=== PATIENT | male | born 1965 | race Caucasian/White ===

== ENCOUNTER 2023-12-09 13:31 | Emergency (ER) | payer OTHER, BC, SELFPAY ==
[2023-12-09] VITALS (12 sets, daily range): BP systolic 114–126; BP diastolic 72–82; PULSE 60–101; RESP 18; TEMP 36; O2SAT 94–97; BMI 28.6
--- NOTE | 2023-12-09 14:11 | ED.GENADULT ---
HPI - General Adult General Chief complaint: Weakness Stated complaint: Covid three weeks ago, weak/congested since Time Seen by Provider: 12/09/23 13:40 Source: patient Mode of arrival: ambulatory Limitations: no limitations History of Present Illness HPI narrative: 58-year-old male presenting today with fatigue. States that he was diagnosed with COVID-19 about 3 and half weeks ago. He states that he continues to be very tired, no energy. Appetite has been normal. No vomiting. No diarrhea or urinary symptoms. He denies chest or abdominal pain. He is not short of breath. He does have a cough that has continued and perhaps has gotten worse over the last several days. He has an itchy rash behind his legs that is been there for approximately 3 weeks but is now getting better. Past medical history significant for BPH, history of bronchospasm, hidradenitis suppurativa, hyperlipidemia. Patient does smoke tobacco. Uses methamphetamines periodically. Is not immunized for COVID-19. Related Data Home Medications Medication Instructions Recorded Confirmed No Known Home Medications 01/03/23 12/09/23 Allergies Allergy/AdvReac Type Severity Reaction Status Date / Time Penicillins Allergy Unknown Verified 12/09/23 13:43 Review of Systems Status of ROS: Reports: 10 or more systems reviewed and unremarkable except as noted in History and below [facility] Medical History Smoker ?F17.200 - Nicotine dependence, unspecified, uncomplicated (ICD-10) URI (upper respiratory infection) ?J06.9 - Acute upper respiratory infection, unspecified (ICD-10) Social History Smoking Status: Current every day smoker What tobacco products do you use: cigarettes How often do you have a drink containing alcohol: never How often do you have six or more drinks on one occasion: Never AUDIT-C Alcohol total score: 0 Non-prescribed substance use: former substance user and amphetamines/methamphetamines Exam Narrative: Exam Narrative: Overweight, well-developed patient in no acute distress. Alert and oriented. Answers questions appropriately. Mood and affect are appropriate. Thoughts are goal oriented and rational. No tangential or magical thinking noted. Patient speaks in full sentences without needing to catch his breath. Speech is not slurred or pressure. Patient does not appear ill or toxic. HEENT: Normocephalic atraumatic. Pupils are equally round reactive to light. Extraocular muscles are intact. Conjunctivae are moist without any icterus noted. Moist mucous membranes. Posterior pharynx is normal. Neck is soft without any lymphadenopathy or thyromegaly. No masses are appreciated. Cardiovascular: Heart is regular rate and rhythm S1 and S2 are present without any murmurs. Lungs: Clear to auscultation bilaterally no wheezes rhonchi or rales are appreciated. Patient takes deep breaths without any discomfort. Abdomen: Soft, protuberant , nontender and nondistended with normal bowel sounds. No guarding or rebound. No masses or organomegaly appreciated. Extremities: Bilateral lower extremities are without edema. Normal DP and PT pulses. Skin: Well perfused. Has small patches of what appears to be an eczematous rash behind his calves. Const: Vital Signs, click to edit/add: Vital Signs - 24 hr 12/09/23 13:39 12/09/23 14:19 Temperature 96.8 F L Pulse Rate [Right Pulse Oximeter] 101 H Respiratory Rate 18 Blood Pressure [Ri ght Upper Arm] 114/75 Pulse Oximetry 97 94 Oxygen Delivery Me thod Room Air Course Course ED Course: Lab work was unremarkable. EKG, read by me, shows normal sinus rhythm with a pulse of 72. Chest x-ray, read by me, does not show any acute pathology. Patient received a L of normal saline, after which his pulse went from low 100's to 80's. Patient stated that he was feeling a little bit better. Vital Signs Vital signs: Initial Vital Signs Temperature 96.8 F L 12/09/23 13:39 Temperature Source Temporal Artery Scan 12/09/23 13:39 Pulse Rate 101 H 12/09/23 13:39 Respiratory Rate 18 12/09/23 13:39 Blood Pressure 114/75 12/09/23 13:39 Blood Pressure Mean 88 12/09/23 13:39 Blood Pressure Position Sitting 12/09/23 13:39 Pulse Oximetry 97 12/09/23 13:39 Oxygen Delivery Method Room Air 12/09/23 13:39 Vital Signs Temperature 96.8 F L 12/09/23 13:39 Pulse Rate 101 H 12/09/23 13:39 Respiratory Rate 18 12/09/23 13:39 Blood Pressure 114/75 02/02/24 13:39 Pulse Oximetry 97 12/09/23 13:39 Oxygen Delivery Method Room Air 12/09/23 13:39 Temperature 96.8 F L 12/09/23 13:39 Pulse Rate 101 H 12/09/23 13:39 Respiratory Rate 18 12/09/23 13:39 Blood Pressure 114/75 12/09/23 13:39 Pulse Oximetry 94 12/09/23 14:19 Oxygen Delivery Method Room Air 12/09/23 13:39 Medications Administered Medications: Discontinued Medications Generic Name Dose Route Start Last Admin Trade Name Freq PRN Reason Stop Dose Admin Sodium Chloride 1,000 mls @ 1,000 mls/hr 12/09/23 14:00 12/09/23 15:20 0.9 % Sodium Chloride 1000 Ml IV 12/09/23 14:59 Infused .Q1H SOSA Infusion Medical Decision Making MDM Narrative Medical decision making narrative: 58-year-old male with fatigue status post COVID infection and mild dehydration. We discussed rest, hydration and reasons for follow-up. Lab Data Lab results reviewed: Yes I reviewed the patient's lab results Labs: Lab Results 12/09/23 12/09/23 12/09/23 Range/Units 13:58 14:12 14:12 WBC 7.58 (4.50-11.00) K/uL RBC 5.20 (4.30-5.90) m/uL Hgb 15.6 (13.5-17.5) gm/dL Hct 47.4 (37.0-53.0) % MCV 91 (80-100) fL MCH 30 (26-34) pg MCHC 33 (32-36) gm/dL RDW Coeff of Zainab 13.0 (11.5-15.5) % Plt Count 333 (140-440) K/uL Neut % (Auto) 56.2 (42.0-72.0) % Lymph % (Auto) 25.3 (20-44) % [place] % (Auto) 8.7 (0.0-11.0) % Eos % (Auto) 9.2 H (0.0-7.0) % Baso % (Auto) 0.3 (0.0-3.0) % Neut # (Auto) 4.26 (1.7-7.0) K/uL Lymph # (Auto) 1.92 (0.90-2.90) K/uL [place] # (Auto) 0.70 (0.00-0.90) K/UL Eos # (Auto) 0.70 H (0.00-0.50) K/uL Baso # (Auto) 0.02 (0.00-0.30) K/uL Abs Immat Gran (auto) 0.02 (0.00-0.30) K/uL Imm/Tot Granulo (auto) 0.3 % D-Dimer Quant (PE/DVT) 0.29 (0.00-0.50) ug/ml Sodium Cancelled 140 Potassium Cancelled Chloride Carbon Dioxide Anion Gap BUN Creatinine Estimated Creat Clear Estimated GFR Glucose Lactate (0.5-1.9) mmol/L Calcium Total Bilirubin (0.1-1.5) mg/dL Direct Bilirubin (0.0-0.5) mg/dL AST (12-35) U/L ALT (4-50) U/L Alkaline Phosphatase (40-150) U/L Troponin I (0.01-0.04) ng/mL C-Reactive Protein Total Protein (6.0-8.3) g/dL Albumin (3.3-5.0) g/dL Urine Color (Yellow) Urine Appearance (Clear) Urine pH (5.0-8.5) Ur Specific [place] (1.000-1.030) Urine Protein (Negative) Urine Glucose (UA) (Negative) Urine Ketones (Negative) Urine Blood (Negative) Urine Nitrite (Negative) Urine Bilirubin (Negative) Urine Urobilinogen (0.2-1.0) Ur Leukocyte Esterase (Negative) Urine RBC (0-2) Urine WBC (0-5) Ur Squamous Epith Cells (None-Few) Other Sediment (None) Urine Bacteria (None) SARS-CoV-2 (PCR) POSITIVE SARS-CoV-2 A (Negative) Monoscreen (Negative) Influenza Type A (PCR) Negative PCR FLU A (Negative) Influenza Type B (PCR) Negative PCR FLU B (Negative) RSV (PCR) Negative PCR RSV (Negative) Group A Strep DNA NOT DETECTED (Not Detectd) 12/09/23 12/09/23 12/09/23 Range/Units 14:12 14:12 14:12 WBC (4.50-11.00) K/uL RBC (4.30-5.90) m/uL Hgb (13.5-17.5) gm/dL Hct (37.0-53.0) % MCV (80-100) fL MCH (26-34) pg MCHC (32-36) gm/dL RDW Coeff of Zainab (11.5-15.5) % Plt Count (140-440) K/uL Neut % (Auto) (42.0-72.0) % Lymph % (Auto) (20-44) % [place] % (Auto) (0.0-11.0) % Eos % (Auto) (0.0-7.0) % Baso % (Auto) (0.0-3.0) % Neut # (Auto) (1.7-7.0) K/uL Lymph # (Auto) (0.90-2.90) K/uL [place] # (Auto) (0.00-0.90) K/UL Eos # (Auto) (0.00-0.50) K/uL Baso # (Auto) (0.00-0.30) K/uL Abs Immat Gran (auto) (0.00-0.30) K/uL Imm/Tot Granulo (auto) % D-Dimer Quant (PE/DVT) (0.00-0.50) ug/ml Sodium Potassium 4.0 Chloride Cancelled 107 Carbon Dioxide Cancelled 24 Anion Gap Cancelled BUN Creatinine Estimated Creat Clear Estimated GFR Glucose Lactate (0.5-1.9) mmol/L Calcium Total Bilirubin (0.1-1.5) mg/dL Direct Bilirubin (0.0-0.5) mg/dL AST (12-35) U/L ALT (4-50) U/L Alkaline Phosphatase (40-150) U/L Troponin I (0.01-0.04) ng/mL C-Reactive Protein Total Protein (6.0-8.3) g/dL Albumin (3.3-5.0) g/dL Urine Color (Yellow) Urine Appearance (Clear) Urine pH (5.0-8.5) Ur Specific [place] (1.000-1.030) Urine Protein (Negative) Urine Glucose (UA) (Negative) Urine Ketones (Negative) Urine Blood (Negative) Urine Nitrite (Negative) Urine Bilirubin (Negative) Urine Urobilinogen (0.2-1.0) Ur Leukocyte Esterase (Negative) Urine RBC (0-2) Urine WBC (0-5) Ur Squamous Epith Cells (None-Few) Other Sediment (None) Urine Bacteria (None) SARS-CoV-2 (PCR) (Negative) Monoscreen (Negative) Influenza Type A (PCR) (Negative) Influenza Type B (PCR) (Negative) RSV (PCR) (Negative) Group A Strep DNA (Not Detectd) 12/09/23 12/09/23 12/09/23 Range/Units 14:12 14:12 14:12 WBC (4.50-11.00) K/uL RBC (4.30-5.90) m/uL Hgb (13.5-17.5) gm/dL Hct (37.0-53.0) % MCV (80-100) fL MCH (26-34) pg MCHC (32-36) gm/dL RDW Coeff of Zainab (11.5-15.5) % Plt Count (140-440) K/uL Neut % (Auto) (42.0-72.0) % Lymph % (Auto) (20-44) % [place] % (Auto) (0.0-11.0) % Eos % (Auto) (0.0-7.0) % Baso % (Auto) (0.0-3.0) % Neut # (Auto) (1.7-7.0) K/uL Lymph # (Auto) (0.90-2.90) K/uL [place] # (Auto) (0.00-0.90) K/UL Eos # (Auto) (0.00-0.50) K/uL Baso # (Auto) (0.00-0.30) K/uL Abs Immat Gran (auto) (0.00-0.30) K/uL Imm/Tot Granulo (auto) % D-Dimer Quant (PE/DVT) (0.00-0.50) ug/ml Sodium Potassium Chloride Carbon Dioxide Anion Gap 9 BUN Cancelled 14 Creatinine Cancelled 0.9 Estimated Creat Clear Cancelled Estimated GFR Glucose Lactate (0.5-1.9) mmol/L Calcium Total Bilirubin (0.1-1.5) mg/dL Direct Bilirubin (0.0-0.5) mg/dL AST (12-35) U/L ALT (4-50) U/L Alkaline Phosphatase (40-150) U/L Troponin I (0.01-0.04) ng/mL C-Reactive Protein Total Protein (6.0-8.3) g/dL Albumin (3.3-5.0) g/dL Urine Color (Yellow) Urine Appearance (Clear) Urine pH (5.0-8.5) Ur Specific [place] (1.000-1.030) Urine Protein (Negative) Urine Glucose (UA) (Negative) Urine Ketones (Negative) Urine Blood (Negative) Urine Nitrite (Negative) Urine Bilirubin (Negative) Urine Urobilinogen (0.2-1.0) Ur Leukocyte Esterase (Negative) Urine RBC (0-2) Urine WBC (0-5) Ur Squamous Epith Cells (None-Few) Other Sediment (None) Urine Bacteria (None) SARS-CoV-2 (PCR) (Negative) Monoscreen (Negative) Influenza Type A (PCR) (Negative) Influenza Type B (PCR) (Negative) RSV (PCR) (Negative) Group A Strep DNA (Not Detectd) 12/09/23 12/09/23 12/09/23 Range/Units 14:12 14:12 14:12 WBC (4.50-11.00) K/uL RBC (4.30-5.90) m/uL Hgb (13.5-17.5) gm/dL Hct (37.0-53.0) % MCV (80-100) fL MCH (26-34) pg MCHC (32-36) gm/dL RDW Coeff of Zainab (11.5-15.5) % Plt Count (140-440) K/uL Neut % (Auto) (42.0-72.0) % Lymph % (Auto) (20-44) % [place] % (Auto) (0.0-11.0) % Eos % (Auto) (0.0-7.0) % Baso % (Auto) (0.0-3.0) % Neut # (Auto) (1.7-7.0) K/uL Lymph # (Auto) (0.90-2.90) K/uL [place] # (Auto) (0.00-0.90) K/UL Eos # (Auto) (0.00-0.50) K/uL Baso # (Auto) (0.00-0.30) K/uL Abs Immat Gran (auto) (0.00-0.30) K/uL Imm/Tot Granulo (auto) % D-Dimer Quant (PE/DVT) (0.00-0.50) ug/ml Sodium Potassium Chloride Carbon Dioxide Anion Gap BUN Creatinine Estimated Creat Clear 94.13 Estimated GFR Cancelled 98 Glucose Cancelled 151 H Lactate 1.4 (0.5-1.9) mmol/L Calcium Cancelled Total Bilirubin (0.1-1.5) mg/dL Direct Bilirubin (0.0-0.5) mg/dL AST (12-35) U/L ALT (4-50) U/L Alkaline Phosphatase (40-150) U/L Troponin I (0.01-0.04) ng/mL C-Reactive Protein Total Protein (6.0-8.3) g/dL Albumin (3.3-5.0) g/dL Urine Color (Yellow) Urine Appearance (Clear) Urine pH (5.0-8.5) Ur Specific [place] (1.000-1.030) Urine Protein (Negative) Urine Glucose (UA) (Negative) Urine Ketones (Negative) Urine Blood (Negative) Urine Nitrite (Negative) Urine Bilirubin (Negative) Urine Urobilinogen (0.2-1.0) Ur Leukocyte Esterase (Negative) Urine RBC (0-2) Urine WBC (0-5) Ur Squamous Epith Cells (None-Few) Other Sediment (None) Urine Bacteria (None) SARS-CoV-2 (PCR) (Negative) Monoscreen (Negative) Influenza Type A (PCR) (Negative) Influenza Type B (PCR) (Negative) RSV (PCR) (Negative) Group A Strep DNA (Not Detectd) 12/09/23 12/09/23 12/09/23 Range/Units 14:12 14:12 15:18 WBC (4.50-11.00) K/uL RBC (4.30-5.90) m/uL Hgb (13.5-17.5) gm/dL Hct (37.0-53.0) % MCV (80-100) fL MCH (26-34) pg MCHC (32-36) gm/dL RDW Coeff of Zainab (11.5-15.5) % Plt Count (140-440) K/uL Neut % (Auto) (42.0-72.0) % Lymph % (Auto) (20-44) % [place] % (Auto) (0.0-11.0) % Eos % (Auto) (0.0-7.0) % Baso % (Auto) (0.0-3.0) % Neut # (Auto) (1.7-7.0) K/uL Lymph # (Auto) (0.90-2.90) K/uL [place] # (Auto) (0.00-0.90) K/UL Eos # (Auto) (0.00-0.50) K/uL Baso # (Auto) (0.00-0.30) K/uL Abs Immat Gran (auto) (0.00-0.30) K/uL Imm/Tot Granulo (auto) % D-Dimer Quant (PE/DVT) (0.00-0.50) ug/ml Sodium Potassium Chloride Carbon Dioxide Anion Gap BUN Creatinine Estimated Creat Clear Estimated GFR Glucose Lactate (0.5-1.9) mmol/L Calcium 9.4 Total Bilirubin 0.7 (0.1-1.5) mg/dL Direct Bilirubin 0.1 (0.0-0.5) mg/dL AST 42 H (12-35) U/L ALT 79 H (4-50) U/L Alkaline Phosphatase 83 (40-150) U/L Troponin I < 0.01 L (0.01-0.04) ng/mL C-Reactive Protein Cancelled 0.8 Total Protein 7.0 (6.0-8.3) g/dL Albumin 4.2 (3.3-5.0) g/dL Urine Color Yellow (Yellow) Urine Appearance Clear (Clear) Urine pH 8.0 (5.0-8.5) Ur Specific [place] 1.020 (1.000-1.030) Urine Protein Negative (Negative) Urine Glucose (UA) Negative (Negative) Urine Ketones Negative (Negative) Urine Blood Negative (Negative) Urine Nitrite Negative (Negative) Urine Bilirubin Negative (Negative) Urine Urobilinogen 0.2 (0.2-1.0) Ur Leukocyte Esterase Negative (Negative) Urine RBC 0-2 (0-2) Urine WBC 0-2 (0-5) Ur Squamous Epith Cells None (None-Few) Other Sediment 0 (None) Urine Bacteria None (None) SARS-CoV-2 (PCR) (Negative) Monoscreen Negative (Negative) Influenza Type A (PCR) (Negative) Influenza Type B (PCR) (Negative) RSV (PCR) (Negative) Group A Strep DNA (Not Detectd) Imaging Data Chest x-ray: Attestation: I have reviewed the pertinent imaging results. Radiologist's impression: PA and lateral views of the chest Findings: There is no focal consolidation, effusion, or pneumothorax. The cardiomediastinal silhouette is within normal limits. The bony thorax is grossly intact. Impression: No dense consolidation is appreciated. No acute cardiopulmonary abnormality. ECG Data Attestation: I personally reviewed and interpreted this ECG as follows: Discharge Plan Discharge Clinical Impression: COVID-19, Fatigue, Dehydration Patient Disposition: Home, Self-Care Condition: Improved Additional Instructions: Rest as much as you need to, and stay well hydrated. Follow-up with primary care provider in a couple of weeks. Prescriptions: No Action No Known Home Medications Follow Up/Referrals: Jarocho Noriega MD [Primary Care Provider] - Stand Alone Forms: [employer] Info Instructions
[2023-12-09] MEDS: 0.9 % SODIUM CHLORIDE 1000 ml 1,000 ML IV (14:18)
[2023-12-09 14:21] LABS: Lactate* 1.4 mmol/L (0.5-1.9)
[2023-12-09 14:23] LABS: Basophils Absolute Auto 0.02 K/uL (0.00-0.30); Basophils Percent Auto 0.3 % (0.0-3.0); Eosinophils Percent Auto 9.2 % (0.0-7.0); Hematocrit 47.4 % (37.0-53.0); Hemoglobin* 15.6 gm/dL (13.5-17.5); Immature Granulocytes Abs Auto 0.02 K/uL (0.00-0.30); Immature Granulocytes Pct Auto 0.3 %; Lymphocytes Absolute Auto 1.92 K/uL (0.90-2.90); Lymphocytes Percent Auto 25.3 % (20-44); Mean Corpuscular HGB Conc 33 gm/dL (32-36); Mean Corpuscular Hemoglobin 30 pg (26-34); Mean Corpuscular Volume 91 fL (80-100); Monocytes Percent Auto 8.7 % (0.0-11.0); Neutrophils Absolute Auto 4.26 K/uL (1.7-7.0); Neutrophils Percent Auto 56.2 % (42.0-72.0); Platelet Count* 333 K/uL (140-440); White Blood Count* 7.58 K/uL (4.50-11.00)
[2023-12-09 14:28] LABS: Slide Review Reflex No
[2023-12-09 14:36] LABS: Albumin* 4.2 g/dL (3.3-5.0); Chloride* 107 mmol/L (96-114)
[2023-12-09 14:37] LABS: Sodium* 140 mmol/L (135-149)
[2023-12-09 14:39] LABS: Creatinine* 0.9 mg/dL (0.5-1.5); Est. Creatinine Clearance* 94.13; Estimated Glomerular Filt Rate 98 ml/min
[2023-12-09 14:40] LABS: Alanine Aminotransferase* 79 U/L (4-50); Alkaline Phosphatase* 83 U/L (40-150); Aspartate Amino Transferase* 42 U/L (12-35); Bilirubin Direct* 0.1 mg/dL (0.0-0.5); Bilirubin Total* 0.7 mg/dL (0.1-1.5); Blood Urea Nitrogen* 14 mg/dL (7-30); Calcium* 9.4 mg/dL (8.4-10.6); Glucose* 151 mg/dL (60-115)
[2023-12-09 14:42] LABS: Mono Screen* Negative (Negative)
[2023-12-09 14:43] LABS: C Reactive Protein* 0.8 mg/dL (0.5-1.0)
[2023-12-09 14:51] LABS: D Dimer Quantitative* 0.29 ug/ml (0.00-0.50)
[2023-12-09 14:56] LABS: Troponin I* < 0.01 ng/mL (0.01-0.04)
[2023-12-09 14:56] LABS: PCR FLU A Negative PCR FLU A (Negative); PCR FLU B Negative PCR FLU B (Negative); PCR RSV Negative PCR RSV (Negative); SARS PCR* POSITIVE SARS-CoV-2 (Negative)
[2023-12-09 15:15] LABS: Anion Gap 9 mEq/L (7-15); Carbon Dioxide* 24 mmol/L (20-32)
--- NOTE | 2023-12-09 15:15 | CRLHL7_ITS ---
For Patients: As a result of the Century Cures Act, medical imaging exams and procedure reports are released immediately into your electronic medical record. You may view this report before your referring provider. If you have questions, please contact your health care provider. INDICATION: [id number]. TECHNIQUE: Chest 2 views. COMPARISON: January 03, 2023. FINDINGS: Cardiovascular and mediastinum: Heart size and vasculature are normal in caliber and appearance. Lungs and pleural spaces: Lingular atelectasis. No sign of infiltrate or mass. No sign of pleural effusion. No pneumothorax. Bones and soft tissues: No significant findings. IMPRESSION: No acute or significant findings. Dictated by Cedric De Jesus MD @ 12/09/2023 3:52:31 PM (Electronically Signed)
[2023-12-09 15:16] LABS: Strep A DNA Probe* NOT DETECTED (Not Detectd)
[2023-12-09 15:30] LABS: Appearance Urine Clear (Clear); Bilirubin Urine Negative (Negative); Blood Urine Negative (Negative); Color Urine Yellow (Yellow); Glucose Urine Negative (Negative); Ketones Urine Negative (Negative); Leukocyte Esterase Urine Negative (Negative); Nitrite Urine Negative (Negative); Protein Urine Negative (Negative); Urobilinogen Urine 0.2 (0.2-1.0)
[2023-12-09 15:37] LABS: Other Sediment Urine 0; RBC Urine 0-2 (0-2); WBC Urine 0-2 (0-5)
== END 2023-12-09 15:58 | disposition home or self-care (01) ==
PROVIDERS: Emergency Provider Family Medicine; PCP Family Medicine
DX: U07.1 COVID-19 (principal); R53.83 Other fatigue; E86.0 Dehydration
CPT/HCPCS: 36415; 71046; 80048; 80076; 81001; 83605; 84484; 85025; 85379; 86140; 86308; 87086; 87631; 87651; 93005; 94761; 96360; 99284; 99285; J7030

== ENCOUNTER 2024-07-23 09:18 | Outpatient (CLI) | payer OTHER, SELFPAY | END 2024-07-23 09:19 | disposition home or self-care (01) | LOC: NFLDREF 07-26 11:41 | PROVIDERS: PCP Family Medicine; Referring Provider Family Medicine; Visit Provider Family Medicine | DX: Z12.5 Encounter for screening for malignant neoplasm of prostate (principal); Z13.6 Encounter for screening for cardiovascular disorders; Z13.1 Encounter for screening for diabetes mellitus | CPT/HCPCS: 80061; 82947; G0103 ==

== ENCOUNTER 2025-02-26 16:47 | Emergency (ER) | payer OTHER, SELFPAY ==
--- OUTSIDE RECORDS SUMMARY | 2025-02-26 16:49 | XMS_ITS | Clinical Summary ---
Author Organization [facility] Address [address] [place] [id number] Care Team Providers Care Superintendent Institution Name Role Phone Pcp, No Primary Care Provider Unavailabl e Allergies Active Allergy Reactions Criticality Noted Date Comments Penicillins *Unknown 01/06/2007 Medications tamsulosin (FLOMAX) 0.4 mg capsule Take 1 capsule by mouth once daily after a meal. 60 capsule 0 09/26/2013 Active Active Problems Problem Noted Date Diagnosed Date Adjustment disorder with mixed anxiety and depre ssed mood 04/22/2019 Tobacco use 10/16/2013 Immunizations Immunization Administration Dates Next Due COVID-19 vaccine ([place] 30mcg/0.3mL) JAY Carey 04/01/2021,03/11/2021 Tdap 07/27/2012 Social History Tobacco Use Types Packs/Day Years Used Date Smoking Tobacco: Every Day Cigarettes Smokeless Tobacco: Never Tobacco Cessation:Ready to Q uit: Yes; Counseling Given: Yes Alcohol Use Standard Drinks/Week Comments Not Asked 0 (1 standard drink = 0.6 oz pur e alcohol) PHQ-2 Answer Date Recorded PHQ-2 Score 0 02/15/2019 Sex and Gender Information Value Date Recorded Sex Assigned at Not on file Legal Sex Male 5:43 AM [employer] Gender Identity Not on file Sexual Orientation Not on file Obstetrics History Last Filed Vital Signs Vital Sign Reading Time Taken Comments Blood Pressure 104/75 10/16/2013 4:17 PM [employer] Pulse 81 10/16/2013 3:34 PM [employer] Temperature 37.1 C (98.7 F) 10/16/2013 3:34 PM [employer] Respiratory Rate 18 12/21/2012 3:00 AM [employer] Oxygen Saturation 100% 10/03/2013 7:59 AM [employer] Inhaled Oxygen Concentration - - Weight 87.5 kg (193 lb) 10/16/2013 3:34 PM [employer] Height 177.2 cm (5' 9.76) 10/16/2013 3:34 PM CS T Body Mass Index 27.88 10/16/2013 3:34 PM [employer] Plan of Treatment Health Maintenance Due Date Last Done Comments HIV for age 15-65 1979 BMI (ht and wt on same day) for age 18+ 1982 Hepatitis C screening for age 18-79 1982 Colonoscopy through age 75 2009 Lipids for age 45-75 2009 Pneumococcal series for age 50+ (1 of 1 - PCV) 2014 Zoster (shingles) series for age 50+ (1 of 2) 2014 Depression screening for age 12+ 07/12/2020 07/12/2019, 04/20/2019, 02/14/2019 Tetanus booster 07/27/2022 07/27/2012 COVID-19 vaccine series ( season) 2024 04/01/2021, 03/11/2021 Influenza Vaccine (Season Ended) 2025 RSV vaccine for adults or pr egnancy (1 - 1-dose 75+ series) 2039 Tdap Completed 07/27/2012 Insurance [facility] [employer] Care Teams Superintendent Institution Relationship Specialty Start Date End Date Pcp, No . PCP - General 09/24/11
[2025-02-26 17:02] VITALS: BP 117/72; PULSE 92; RESP 20; TEMP 37.2; O2SAT 95; BMI 30.8
--- NOTE | 2025-02-26 17:12 | ED.GENADULT ---
HPI - General Adult General Date Seen: 02/26/25 Chief complaint: Cough Stated complaint: shortness of breath Time Seen by Provider: 02/26/25 17:11 History of Present Illness HPI narrative: 59 yo M with a history of tobacco use, also history of hyperlipidemia, GERD, hidradenitis, BPH, presenting to the ER today with cough and shortness of breath. He has no history of asthma or COPD. He never used inhalers before. Per his nurse triage note he has had body aches and cough ongoing since Tuesday (5 days) he feels like today is the worst day so far. Patient friends that he has been sick since Tuesday. He has had a cough and a lot of body aches and intermittent headache. He has felt chilled and has used as blanket a lot and has been very fatigued but has not had any measured fevers. Cough is productive of thick greenish sputum. He is not really having chest pain and although his chief complaint was shortness of breath, says not really short of breath he is just coughing and achy. He is not having any vomiting and diarrhea. He has no known specific exposure to any pathogen but does work at [employer] so could have been exposed to multiple things unknowingly. He is a smoker but has no other long-term lung disease. No history of diabetes. Related Data Home Medications ?Medication ?Instructions ?Recorded ?Confirmed multivitamin 1 tab PO QDAY 07/17/24 02/26/25 turmeric 400 mg capsule 400 mg PO .QD 07/17/24 02/26/25 Previous Rx's ?Medication ?Instructions ?Recorded terazosin 5 mg capsule 5 mg PO QDAY #90 caps 07/17/24 benzonatate 100 mg capsule 100 mg PO TID PRN cough #14 caps 02/26/25 doxycycline hyclate 100 mg capsule 100 mg PO BID #14 caps 02/26/25 Allergies Allergy/AdvReac Type Severity Reaction Status Date / Time Penicillins Allergy Mild Unknown Verified 02/26/25 17:07 [facility] Medical History Smoker ?F17.200 - Nicotine dependence, unspecified, uncomplicated (ICD-10) Surgical History (Updated 07/16/24 @ 15:33 by Zenobia Denson) Condyloma acuminata ?A63.0 - Anogenital (venereal) warts (ICD-10) Family History (Updated 07/16/24 @ 15:28 by Zenobia Denson) Mother Atrial fibrillation Pancreatic cancer Grandmother Breast cancer Father Diabetes Sister Rheumatoid arthritis Social History (Updated 07/17/24 @ 14:38 by Florinda Marie~[facility]) What is your current living situation?: I presently have a place to live Problems where you live: no known problems In the past 12 months, utilities in danger of being shut off: no In past 12 months, lack of transportation kept you from medical appts, meetings, work, or getting things needed for daily living: no In the past 12 mos, have been you worried that your food would run out before you had money to buy more?: never true In the past 12 mos, the food you bought just didn't last and you didn't have money to buy more?: never true Smoking Status: Current every day smoker What tobacco products do you use: cigarettes How often do you have a drink containing alcohol: never How often do you have six or more drinks on one occasion: Never AUDIT-C Alcohol total score: 0 Non-prescribed substance use: former substance user and amphetamines/methamphetamines How often does anyone, including family, friends and others, physically hurt you: never How often does anyone, including family, friends and others, insult or talk down to you: rarely How often does anyone, including family, friends and others, threaten you with harm: never How often does anyone, including family, friends and others, scream or curse at you: rarely service: Yes Health Related Social Needs: Other personal risk factors, not elsewhere classified (Z91.89) Exam Narrative: Exam Narrative: Constitutional: Appears well-developed and well-nourished. Alert. Looks achy and tired. He is covered up with his blanket from home. He groans when he sits upper posterior lung exam but is able to do it. Conversant. HENT: Head: Atraumatic. Nose: Nose normal. Tympanic membranes normal bilaterally. Mastoids and pinna normal bilaterally. Mouth/Throat: Oral mucosa is clear and moist. no trismus. Pharynx normal. Tonsils symmetric. No tonsillar enlargement, erythema, or exudate. Eyes: Conjunctivae normal. EOM normal. Pupils equal, round, and reactive to light. No scleral icterus. Neck: Normal range of motion. Neck supple. No tracheal deviation present. Cardiovascular: Normal rate, regular rhythm. No gallop. No friction rub. No murmur heard. Symmetric radial artery pulses Pulmonary/Chest: Effort normal. No stridor. No respiratory distress. No wheezes. No rales. No rhonchi . No tenderness. Abdominal: Soft. No distension. No mass. No tenderness. No rebound. No guarding. Musculoskeletal: RUE: Normal range of motion. No tenderness. No deformity LUE: Normal range of motion. No tenderness. No deformity RLE: Normal range of motion. No edema. No tenderness. No deformity LLE: Normal range of motion. No edema. No tenderness. No deformity Neurological: Alert and oriented to person, place, and time. Normal strength. CN II-VII intact. No sensory deficit. GCS eye subscore is 4. GCS verbal subscore is 5. GCS motor subscore is 6. Normal coordination Skin: Skin is warm and dry. No rash noted. No pallor. Normal capillary refill. Psychiatric: Normal mood. Normal affect. Const: Vital Signs, click to edit/add: Vital Signs - 24 hr 02/26/25 17:02 Temperature 98.9 F Pulse Rate [Right Pulse Oximeter] 92 Respiratory Rate 20 Blood Pressure [Ri ght Forearm] 117/72 Pulse Oximetry 95 Oxygen Delivery Me thod Room Air Course Vital Signs Vital signs: Initial Vital Signs Temperature 98.9 F 02/26/25 17:02 Temperature Source Temporal Artery Scan 02/26/25 17:02 Pulse Rate 92 02/26/25 17:02 Pulse Rhythm Regular 02/26/25 17:02 Pulse Strength 3+ Normal 02/26/25 17:02 Respiratory Rate 20 02/26/25 17:02 Blood Pressure 117/72 02/26/25 17:02 Blood Pressure Mean 87 02/26/25 17:02 Blood Pressure Position Sitting 02/26/25 17:02 Pulse Oximetry 95 02/26/25 17:02 Oxygen Delivery Method Room Air 02/26/25 17:02 Vital Signs Temperature 98.9 F 02/26/25 17:02 Pulse Rate 92 02/26/25 17:02 Respiratory Rate 20 02/26/25 17:02 Blood Pressure 117/72 02/26/25 17:02 Pulse Oximetry 95 02/26/25 17:02 Oxygen Delivery Method Room Air 02/26/25 17:02 Temperature 98.9 F 02/26/25 17:02 Pulse Rate 92 02/26/25 17:02 Respiratory Rate 20 02/26/25 17:02 Blood Pressure 117/72 02/26/25 17:02 Pulse Oximetry 95 02/26/25 17:02 Oxygen Delivery Method Room Air 02/26/25 17:02 Medical Decision Making MDM Narrative Medical decision making narrative: This patient presents for evaluation of cough as well as chills, body aches, fatigue, ongoing for 5 days.. This is consistent with an upper respiratory tract infection. Viral testing negative for RSV, COVID, influenza. Since he is a smoker we did obtain chest x-ray to look for pneumonia and chest x-ray is normal by my read and by radiology report.. There is no signs at this point of serious bacterial infection such as OM, RPA, epiglottitis, DESIGN EDITOR, strep pharyngitis, pneumonia, sinusitis, meningitis, bacteremia, serious bacterial infection. He is not having any shortness of breath, hypoxia. No wheezing or bronchospasm. At this point I do not think he would benefit from inhalers or steroids. There are no gastrointestinal symptoms at this point and no signs of dehydration. Close followup with primary care physician is indicated. Since he is a smoker with a productive cough, will give him a prescription for doxycycline. Would advise that he old off for 48 hours to see if this will get better on its own. However, he has a cough persisting for an additional 48 hours ( over than a week in total) it may be reasonable to try an antibiotic. Return to ED for worsening cough, trouble breathing, higher fever, uncontrolled vomiting, or dehydration, confusion, or other worsening. Discussed supportive care, rest, hydration, Tylenol as needed. Prescription for Tessalon to help suppress cough. Questions answered. Patient is agreeable to the plan of care. Lab Data Labs: Lab Results 02/26/25 Range/Units 17:09 SARS-CoV-2 (PCR) Negative SARS-CoV-2 (Negative) Influenza Type A (PCR) Negative PCR FLU A (Negative) Influenza Type B (PCR) Negative PCR FLU B (Negative) RSV (PCR) Negative PCR RSV (Negative) Imaging Data Chest x-ray: Attestation: I have reviewed the pertinent imaging results. My impression: No acute infiltrates. Radiologist's impression: IMPRESSION: 1. No acute cardiopulmonary disease is seen. Discharge Plan Discharge Clinical Impression: Cough Patient Disposition: Home, Self-Care Condition: Stable Instructions: Acute Cough (ED) Additional Instructions: As we discussed your chest x-ray looks good today. No signs of pneumonia. Your swab is negative for coronavirus and influenza. Based on data at this time I suspect your cough is related to a viral infection (but not COVID). This will likely get better over the next couple of days. I am going to give you a prescription for an antibiotic. If your cough is not better after 48 hours (), start on the antibiotic. If you have worsening cough, trouble breathing, chest pain high fever, weakness, dehydration, or other concerns, please come back to the ER right away. Prescriptions: New doxycycline hyclate 100 mg capsule 100 mg PO BID Qty: 14 0RF benzonatate 100 mg capsule 100 mg PO TID PRN (Reason: cough) Qty: 14 0RF No Action multivitamin Tablet 1 tab PO QDAY turmeric 400 mg capsule 400 mg PO .QD terazosin 5 mg capsule 5 mg PO QDAY Qty: 90 3RF Follow Up/Referrals: Jarocho Noriega MD [Primary Care Provider] - Stand Alone Forms: Work/School Release, [facility] Info Instructions
--- NOTE | 2025-02-26 17:13 | CRLHL7_ITS ---
For Patients: As a result of the Cures Act, medical imaging exams and procedure reports are released immediately into your electronic medical record. You may view this report before your referring provider. If you have questions, please contact your health care provider. INDICATION: Cough, body aches TECHNIQUE: Chest radiograph 2 views COMPARISON: None FINDINGS: Mediastinum: The mediastinum is normal in appearance. The heart silhouette is normal in size and morphology. Lung: Both lungs are unremarkable in appearance. No sign of pleural effusion seen. No pneumothorax is identified. Bone and Soft tissue: Unremarkable for age. IMPRESSION: 1. No acute cardiopulmonary disease is seen. Dictated by: Gamal Pérez MD @ 02/26/2025 18:05:33 (Electronically Signed)
--- OUTSIDE RECORDS SUMMARY | 2025-02-26 17:38 | XMS_ITS | Clinical Summary ---
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 Gender Identity Not on file Sexual Orientation Not on file Obstetrics History Last Filed Vital Signs Vital Sign Reading Time Taken Comments Blood Pressure 104/75 10/16/2013 4:17 PM VIDEOGRAPHER Pulse 81 10/16/2013 3:34 PM VIDEOGRAPHER Temperature 37.1 C (98.7 F) 10/16/2013 3:34 PM VIDEOGRAPHER Respiratory Rate 18 12/21/2012 3:00 AM VIDEOGRAPHER Oxygen Saturation 100% 10/03/2013 7:59 AM VIDEOGRAPHER Inhaled Oxygen Concentration - - Weight 87.5 kg (193 lb) 10/16/2013 3:34 PM VIDEOGRAPHER Height 177.2 cm (5' 9.76) 10/16/2013 3:34 PM CS T Body Mass Index 27.88 10/16/2013 3:34 PM VIDEOGRAPHER Plan of Treatment Health Maintenance Due Date [...] 75+ series) 2039 Tdap Completed 07/27/2012 Insurance [facility] [employer] Care Teams Car Clerk Pullman Relationship Specialty Start Date End Date Pcp, No . PCP - General 09/24/11
[2025-02-26 17:54] LABS: PCR FLU A Negative PCR FLU A (Negative); PCR FLU B Negative PCR FLU B (Negative); PCR RSV Negative PCR RSV (Negative); SARS PCR* Negative SARS-CoV-2 (Negative)
[2025-02-26 18:30] VITALS: BP 134/87; PULSE 87; RESP 16
== END 2025-02-26 18:32 | disposition home or self-care (01) ==
PROVIDERS: Emergency Provider Emergency Medicine; PCP Family Medicine
DX: R05.1 Acute cough (principal)
CPT/HCPCS: 71046; 87631; 99283; 99284